=== PATIENT | female | born 1955 | race Caucasian/White ===

== ENCOUNTER → 2017-08-17 16:57 | Outpatient (CLI) | payer OTHER ==
[~2017-08-17 16:57] MED LIST: ATACAND16 MG
== END | disposition home or self-care (01) ==
LOC: LAB 16:57
DX: B44.81 Allergic bronchopulmonary aspergillosis (principal); M30.1 Polyarteritis with lung involvement [Churg-Strauss]; D72.1 Eosinophilia

== ENCOUNTER → 2017-08-29 06:41 | Outpatient (CLI) | payer OTHER | END | disposition home or self-care (01) | LOC: LAB 06:41 | DX: Z01.812 Encounter for preprocedural laboratory examination (principal); Z01.810 Encounter for preprocedural cardiovascular examination; Z01.811 Encounter for preprocedural respiratory examination ==

== ENCOUNTER 2017-11-19 08:30 | Outpatient (CLI) | payer OTHER | END 2017-11-19 08:33 | disposition home or self-care (01) | LOC: LAB 08:30 | DX: J84.112 Idiopathic pulmonary fibrosis (principal); I11.9 Hypertensive heart disease without heart failure; E66.8 Other obesity; K57.30 Diverticulosis of large intestine without perforation or abscess without bleeding ==